=== PATIENT | male | born 1975 | race Caucasian/White ===

== ENCOUNTER 2019-05-01 10:45 | Emergency (ER) | payer OTHER ==
[~2019-05-01] VITALS: Ht 175.3 cm; Wt 58.0 kg
[~2019-05-01 10:45] MED LIST: LISINOP/HCTZ1 TAB PO
[2019-05-01] MEDS ORDERED: VITAMIN D5000 UNI1 PO (11:05)
[2019-05-01] MEDS ORDERED: SIMVASTATIN20 MG PO (11:05)
[2019-05-01] MEDS ORDERED: WELLBUTRIN XL300 MG PO (11:06)
[2019-05-01] MEDS ORDERED: PEPCID20 MG PO (11:23)
[2019-05-01] MEDS ORDERED: MEDDOSEPAK PO (11:23)
[2019-05-01 11:45] VITALS: BP 127/82
== END 2019-05-01 11:56 | disposition home or self-care (01) | DRG 607 ==
LOC: ED 10:45
DX: L23.7 Allergic contact dermatitis due to plants, except food (principal)